=== PATIENT | male | born 1995 | race Caucasian/White ===

== ENCOUNTER 2018-12-28 20:59 | Emergency (ER) | payer OTHER, BC ==
[2018-12-28 21:16] VITALS: TEMP 97.7
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
[2018-12-28] MEDS ORDERED: IBUPROFEN 600 MG STARTER PACK 4 TAB BTL PO STA (23:19)
[2018-12-28 23:29] VITALS: BP 122/67; PULSE 60; RESP 16
== END 2018-12-28 23:27 | disposition home or self-care (01) ==
LOC: EC 20:59
DX: S16.1XXA Strain of muscle, fascia and tendon at neck level, initial encounter (principal); S80.02XA Contusion of left knee, initial encounter; H91.90 Unspecified hearing loss, unspecified ear; Z96.22 Myringotomy tube(s) status; V43.52XA Car driver injured in collision with other type car in traffic accident, initial encounter; Y92.410 Unspecified street and highway as the place of occurrence of the external cause
CPT/HCPCS: 72110; 72125; 99284